=== PATIENT | female | born 1975 | race Caucasian/White ===

== ENCOUNTER 2017-01-03 | Inpatient (IN) | payer OTHER ==
[~2017-01-03] MED LIST: ASPIRINEC PO; CATAPRES0.1 MG PO; IBUPROFEN PO; PRILOSEC PO; ZESTRIL10 M1 PO
--- NOTE | ~2017-01-03 | DS ---
Unit #: [id number] #: [id number] Patient: JANELL PRESTON [id number] [facility] [address] [place] [address] [id number] MR#: [id number] NAME: JANELL PRESTON. ROOM: P183 Age: 41 Sex: F Admission Date: 01/03/2017 : 1975 Discharge Date: 01/04/2017 Attending Physician: Nathaniel Narvaez M.D. Primary Care Physician: Cristi Smith M.D. DISCHARGE SUMMARY REASON FOR ADMISSION Janell is a 41-year-old woman who [place] [facility] [place]. At that time, she also expressed chronic suicidal ideation and multiple psychosocial stressors. She was apparently agitated in the emergency room and was given a shot of chlorpromazine, which made her quite sedated and difficult to interview. After she was medically stabilized [place] [facility], [facility] DIAGNOSTIC STUDIES LABORATORY RESULTS: Please see [facility] records. HOSPITAL COURSE Janell was admitted and placed on suicide precautions. During my initial interview, she was still quite sedated and somewhat confused, not knowing exactly where she was. Citalopram was initiated prophylactically for treatment of depression, given her complaints of suicidal ideation prior to admission. Her other home medications were restarted once they were confirmed by her pharmacy. The following day, the patient's mental status had cleared considerably. She said that she was "surprised to be here" when she woke up, not remembering the transfer from the emergency room. She adamantly denied suicidal ideation, intent, or plan at this time, but agreed to follow up with outpatient care. DISCHARGE DIAGNOSES AXIS I: Major depression. AXIS II: No diagnosis. AXIS III: Obesity, hypertension, history of DVT. AXIS IV: AXIS V: DISCHARGE INSTRUCTIONS Follow up with primary care physician. DISCHARGE MEDICATIONS Celexa 20 mg daily for depression. Primary care medicines included hydrochlorothiazide 12.5 mg daily for hypertension, Mobic 15 mg daily for pain, melatonin 6 mg at bedtime for insomnia, and Lipitor 10 mg at bedtime for high cholesterol. CONDITION AT DISCHARGE Improved. Unit #: [id number] #: [id number] Patient: JANELL PRESTON Fair to good. DIET AND ACTIVITY Per primary care doctor. Dictated by... Mikayla Steve/genna TD: 01/04/2017 20:57 JOB #: [id number] DISCHARGE SUMMARY Page 1 of 1 X Nathaniel Narvaez MD X DISCHARGE SUMMARY
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
--- NOTE | ~2017-01-03 | CO ---
Unit #: [id number] #: [id number] Patient: DERIC PRESTON [id number] [place] [address] [id number] I MR#: [id number] NAME: DERIC PRESTON. ROOM: P183 Age: 41 Sex: F Admission Date: 01/03/2017 : 1975 Attending Physician: Nathaniel Narvaez M.D. Primary Care Physician: Cristi Smith M.D. Consultation Date: 01/10/2017 CONSULTATION REPORT SUBJECTIVE Lorenzo is a 41-year-old with a history of DVTs with PEs. She has been noncompliant with anticoagulant. We will start Xarelto 20 mg one p.o. daily. She can follow up with PCP. Dictated by... Ladonna Betancuort P.A.-C. for Miakyla Segura/genna TD: 01/10/2017 21:14 JOB #: [id number] CONSULTATION REPORT Page 1 of 1 X Ladonna Betancourt CONSULTATION REPORT
--- NOTE | ~2017-01-03 | HP ---
Unit #: [id number] #: [id number] Patient: JANELL PRESTON [id number] [place] [address] [id number] I MR#: [id number] NAME: JANELL PRESTON. ROOM: P183 Age: 41 Sex: F Admission Date: 01/03/2017 : 1975 Attending Physician: Nathaniel Narvaez M.D. Admitting Physician: Nathaniel Narvaez M.D. Primary Care Physician: Cristi Smith M.D. HISTORY AND PHYSICAL HISTORY OF PRESENT ILLNESS Janell is a 41 year old admitted to 1 with depression and verbalizing wanting to hurt herself. She is evidently going through a divorce. PAST MEDICAL HISTORY 1. Morbid obesity 2. High blood pressure 3. History of DVT with PE 4. She has been noncompliant with anticoagulants PAST SURGICAL HISTORY 1. Tubal ligation 2. Low back ALLERGIES Celexa, penicillin, Zofran SOCIAL HISTORY Smokes one-half pack per day. Denies alcohol and illicit drug use. FAMILY HISTORY Medically noncontributory. REVIEW OF SYSTEMS CONSTITUTIONAL: No fever or chills. HEENT: Denies any sore throat, ear pain or runny nose. CARDIOVASCULAR: Denies chest pain, irregular heart rhythm or palpitations. CHEST: Denies shortness of breath or cough. No hemoptysis. GASTROINTESTINAL: Denies nausea, vomiting, diarrhea or chronic constipation. ENDOCRINE: Denies history of increased thirst or urination. No recent significant weight loss or gain. GENITOURINARY: Denies dysuria, frequency, or hematuria. SKIN: Denies any rashes. HEMATOLOGIC: Denies history of increased bleeding or bruising. MUSCULOSKELETAL: Denies any hot, swollen joints. No generalized muscle pain. NEUROLOGIC: Denies problems with vision or speech. No frequent, severe headaches. No numbness, tingling or weakness in any extremities. Denies loss of bladder or bowel control. CURRENT MEDICATIONS Unit #: [id number] #: [id number] Patient: JANELL PRESTON 1. HCTZ 12.5 mg q day 2. Mobic 15 mg q day 3. Melatonin 6 mg q.h.s. 4. Lipitor 10 mg q.h.s. 5. Celexa 20 mg daily 6. Milk of Magnesia p.r.n. 7. Maalox p.r.n. 8. Tylenol p.r.n. 9. Nicotine patch 7 mg q day PHYSICAL EXAMINATION GENERAL: Alert, well-nourished, in no apparent distress. VITAL SIGNS: Blood pressure 140/66, heart rate 80, respirations 16, temperature 98.6. WEIGHT: 275 pounds. HEIGHT: 5'9". SKIN: Warm and dry without rash or lesion. HEENT: Normocephalic. TMs not viewed. Oral and nasal passages clear. Conjunctivae clear. Pupils equal, round and reactive to light and accommodation. Extraocular movements intact. NECK: Supple without lymphadenopathy or thyromegaly. HEART: Regular rate and rhythm without murmur. LUNGS: Clear. ABDOMEN: Soft, nontender. : Not done. EXTREMITIES: No evidence of cyanosis, clubbing or edema. Moves all extremities without focal deficit. Multiple varicose veins bilateral calves. NEUROLOGICAL: Grossly within normal limits. Cranial Nerves: II: Visual santillan are intact. III, IV AND : Extraocular movements are intact. Pupils are equal, round and reactive to light. V: Facial sensation is grossly normal. VII: Facial movements and expression are normal. VIII: Auditory acuity grossly intact. IX, X: Uvula is midline. Phonation is normal. XI: Patient shrugs shoulders and turns head normally. XII: Tongue protrudes in the midline. Sensory and Motor Function: Sensory and motor sensation is grossly normal. Motor: moves all extremities well. Coordination: Gait is normal. Deep Tendon Reflexes: Intact. IMPRESSION Psychiatric admission RECOMMENDATIONS PSYCHIATRIC: Per psychiatrist. MEDICAL: I see no contraindications to participating in facility's activities. MEDICAL PROGNOSIS Good. MEDICAL CONDITION Stable. Unit #: [id number] #: [id number] Patient: JANELL PRESTON Dictated by... Ladonna Betancourt P.A.-C. for Mikayla Segura/simón TD: 01/04/2017 01:09 JOB #: [id number] HISTORY AND PHYSICAL Page 1 of 1 X Ladonna Betancourt X HISTORY AND PHYSICAL
== END 2017-01-04 12:25 | disposition home or self-care (01) | DRG 885 ==
LOC: P1E 05:39
DX: F33.2 Major depressive disorder, recurrent severe without psychotic features (principal); R45.851 Suicidal ideations; E66.01 Morbid (severe) obesity due to excess calories; E66.9 Obesity, unspecified; I10 Essential (primary) hypertension; Z86.718 Personal history of other venous thrombosis and embolism; Z86.711 Personal history of pulmonary embolism; F17.210 Nicotine dependence, cigarettes, uncomplicated; Z88.0 Allergy status to penicillin; Z88.8 Allergy status to other drugs, medicaments and biological substances